=== PATIENT | male | born 1960 | race Caucasian/White ===

== ENCOUNTER → 2017-05-28 | Outpatient (CLI) | payer OTHER, MEDICAID ==
[2017-05-28 10:07] LABS: HEMATOCRIT 40.7 % (42.0-52.0); HEMOGLOBIN 13.6 g/dl (14.0-18.0); MEAN CELL VOLUME 109.7 fl (80.0-94.0); MEAN CORPUSCULAR HGB 36.7 pg (27.0-31.0); MEAN CORPUSCULAR HGB CONC 33.4 g/dl (33.0-37.0); MEAN PLATELET VOLUME 9.8 fl (9.6-12.3); PLATELET COUNT AUTOMATED 112 10*3/uL (130-400); RED BLOOD COUNT 3.71 10*6/uL (4.50-5.90)
[2017-05-28 10:23] LABS: ALBUMIN 3.4 gm/dl (3.1-4.5); CREATININE 4.23 mg/dL (0.70-1.30); MAGNESIUM 2.2 mg/dL (1.5-2.1); POTASSIUM 4.1 mmol/L (3.5-5.1)
[2017-05-28 10:24] LABS: PHOSPHOROUS 3.5 mg/dL (2.5-4.9); URIC ACID 3.2 mg/dL (3.5-7.2)
[2017-05-28 10:30] LABS: THYROID STIM HORMONE (HS) 0.681 uIU/ml (0.358-4.75); TOTAL PROTEIN 8.1 gm/dL (6.4-8.2)
[2017-05-28 10:43] LABS: ATYPICAL LYMPHS 4 % (0-0); BASOPHILS 1 % (0-1); TOTAL CELLS COUNTED 100 #CELLS
[2017-05-28 10:44] LABS: PLATELET SUFFICIENCY LOW (NORMAL)
[2017-05-28 10:47] LABS: SCHISTOCYTES FEW
== END | disposition home or self-care (01) ==
LOC: LAB 09:32
PROVIDERS: Family Medicine; Specialist
DX: Z12.5 Encounter for screening for malignant neoplasm of prostate (principal); E10.29 Type 1 diabetes mellitus with other diabetic kidney complication; D89.9 Disorder involving the immune mechanism, unspecified; T86.90 Unspecified complication of unspecified transplanted organ and tissue; E83.40 Disorders of magnesium metabolism, unspecified; I25.10 Atherosclerotic heart disease of native coronary artery without angina pectoris; N18.6 End stage renal disease; I77.9 Disorder of arteries and arterioles, unspecified; Z79.899 Other long term (current) drug therapy; Z94.83 Pancreas transplant status; Z86.39 Personal history of other endocrine, nutritional and metabolic disease; Z95.5 Presence of coronary angioplasty implant and graft; Z72.0 Tobacco use

== ENCOUNTER → 2017-06-21 | Outpatient (CLI) | payer OTHER, MEDICAID | LOC: CARD 09:29 → US 10:30 | DX: I65.23 Occlusion and stenosis of bilateral carotid arteries (principal); I10 Essential (primary) hypertension; I25.10 Atherosclerotic heart disease of native coronary artery without angina pectoris; I77.9 Disorder of arteries and arterioles, unspecified; Z95.5 Presence of coronary angioplasty implant and graft; Z79.899 Other long term (current) drug therapy ==

== ENCOUNTER → 2017-07-02 | Outpatient (CLI) | payer OTHER, MEDICAID ==
[2017-07-02 10:19] LABS: BILIRUBIN 1+ (NEGATIVE); BLOOD NEGATIVE (NEGATIVE); CLARITY SL CLOUDY (CLEAR); COLOR YELLOW (YELLOW); GLUCOSE NEGATIVE (NEGATIVE); KETONE TRACE (NEGATIVE); LEUKO ESTERASE 1+ (NEGATIVE); NITRITE NEGATIVE (NEGATIVE); UROBILINOGEN 0.2 E.U./dl (0.2-1.0)
[2017-07-02 11:01] LABS: BACTERIA 2+; WBC 16-20 wbc/hpf (0-5)
== END | disposition home or self-care (01) ==
LOC: LAB 09:18
PROVIDERS: Internal Medicine Nephrology
DX: R30.0 Dysuria (principal)

== ENCOUNTER → 2017-09-08 | Outpatient (CLI) | payer OTHER, MEDICAID ==
[2017-09-08 09:48] LABS: HEMATOCRIT 33.8 % (42.0-52.0); HEMOGLOBIN 11.3 g/dl (14.0-18.0); MEAN CELL VOLUME 111.6 fl (80.0-94.0); MEAN CORPUSCULAR HGB 37.3 pg (27.0-31.0); MEAN CORPUSCULAR HGB CONC 33.4 g/dl (33.0-37.0); MEAN PLATELET VOLUME 9.5 fl (9.6-12.3); PLATELET COUNT AUTOMATED 190 10*3/uL (130-400); RED BLOOD COUNT 3.03 10*6/uL (4.50-5.90); RED CELL DISTRI WIDTH 14.3 % (0-14.5); WHITE BLOOD COUNT 5.9 10*3/uL (4.8-10.8)
[2017-09-08 10:08] LABS: BASOPHILS 1 % (0-1); TOTAL CELLS COUNTED 100 #CELLS
[2017-09-08 10:09] LABS: PLATELET SUFFICIENCY NORMAL (NORMAL)
[2017-09-08 10:13] LABS: ALBUMIN 3.5 gm/dl (3.1-4.5); CREATININE 4.14 mg/dL (0.70-1.30); POTASSIUM 3.7 mmol/L (3.5-5.1); TOTAL PROTEIN 7.6 gm/dL (6.4-8.2); URIC ACID 3.7 mg/dL (3.5-7.2)
[2017-09-09 06:10] LABS: HIV 1+2 AB + HIV1 P24 AG Non Reactive (Non Reactive)
[2017-09-10 07:06] LABS: HEPATITIS B SURFACE AG Positive (Negative); HEPATITIS Be ANTIGEN 006619 Positive (Negative)
[2017-09-10 14:07] LABS: HBV LOG10 7.947 (.); HBV QUANT 88600000 IU/mL (.); HEPATITIS B QNT See Final Results IU/mL (.)
== END | disposition home or self-care (01) ==
LOC: LAB 08:50
PROVIDERS: Internal Medicine Infectious Disease
DX: Z11.4 Encounter for screening for human immunodeficiency virus [HIV] (principal); B18.1 Chronic viral hepatitis B without delta-agent; D89.9 Disorder involving the immune mechanism, unspecified; Z94.0 Kidney transplant status

== ENCOUNTER → 2017-09-22 | Outpatient (CLI) | payer OTHER, MEDICAID ==
[2017-09-22 11:06] LABS: LIPASE 434 U/L (73-393)
== END | disposition home or self-care (01) ==
LOC: LAB 10:05
PROVIDERS: Specialist
DX: D89.9 Disorder involving the immune mechanism, unspecified (principal); Z94.83 Pancreas transplant status; Z79.899 Other long term (current) drug therapy

== ENCOUNTER → 2017-11-24 | Outpatient (CLI) | payer OTHER, MEDICAID ==
[2017-11-24 10:44] LABS: HEMATOCRIT 33.3 % (42.0-52.0); HEMOGLOBIN 10.9 g/dl (14.0-18.0); MEAN CELL VOLUME 110.3 fl (80.0-94.0); MEAN CORPUSCULAR HGB 36.1 pg (27.0-31.0); MEAN CORPUSCULAR HGB CONC 32.7 g/dl (33.0-37.0); MEAN PLATELET VOLUME 9.7 fl (9.6-12.3); PLATELET COUNT AUTOMATED 198 10*3/uL (130-400); RED BLOOD COUNT 3.02 10*6/uL (4.50-5.90); WHITE BLOOD COUNT 5.5 10*3/uL (4.8-10.8)
[2017-11-24 10:49] LABS: CREATININE 4.58 mg/dL (0.70-1.30); POTASSIUM 4.2 mmol/L (3.5-5.1); URIC ACID 3.2 mg/dL (3.5-7.2)
[2017-11-24 11:06] LABS: BASOPHILS 2 % (0-1); PLATELET SUFFICIENCY NORMAL (NORMAL); POLYCHROMASIA SLIGHT; TOTAL CELLS COUNTED 100 #CELLS
== END | disposition home or self-care (01) ==
LOC: LAB 10:03
PROVIDERS: Specialist
DX: D89.9 Disorder involving the immune mechanism, unspecified (principal); Z94.83 Pancreas transplant status; T86.90 Unspecified complication of unspecified transplanted organ and tissue; E83.40 Disorders of magnesium metabolism, unspecified; Z79.899 Other long term (current) drug therapy

== ENCOUNTER → 2017-12-14 | Outpatient (CLI) | payer OTHER, MEDICAID ==
[2017-12-14 09:11] LABS: HEMATOCRIT 34.5 % (42.0-52.0); HEMOGLOBIN 11.6 g/dl (14.0-18.0); MEAN CELL VOLUME 109.2 fl (80.0-94.0); MEAN CORPUSCULAR HGB 36.7 pg (27.0-31.0); MEAN CORPUSCULAR HGB CONC 33.6 g/dl (33.0-37.0); MEAN PLATELET VOLUME 9.3 fl (9.6-12.3); PLATELET COUNT AUTOMATED 186 10*3/uL (130-400); RED BLOOD COUNT 3.16 10*6/uL (4.50-5.90); RED CELL DISTRI WIDTH 14.9 % (0-14.5); WHITE BLOOD COUNT 6.4 10*3/uL (4.8-10.8)
[2017-12-14 09:43] LABS: CREATININE 5.81 mg/dL (0.70-1.30); PHOSPHOROUS 5.5 mg/dL (2.5-4.9); POTASSIUM 3.7 mmol/L (3.5-5.1); URIC ACID 5.4 mg/dL (3.5-7.2)
[2017-12-14 09:58] LABS: PLATELET SUFFICIENCY NORMAL (NORMAL); TOTAL CELLS COUNTED 100 #CELLS
== END | disposition home or self-care (01) ==
LOC: LAB 08:40
PROVIDERS: Specialist
DX: E83.40 Disorders of magnesium metabolism, unspecified (principal); D89.9 Disorder involving the immune mechanism, unspecified; T86.90 Unspecified complication of unspecified transplanted organ and tissue; Z79.899 Other long term (current) drug therapy; Z94.83 Pancreas transplant status

== ENCOUNTER → 2018-01-11 | Outpatient (CLI) | payer OTHER, MEDICAID ==
[2018-01-11 10:38] LABS: HEMATOCRIT 34.4 % (42.0-52.0); HEMOGLOBIN 11.4 g/dl (14.0-18.0); MEAN CELL VOLUME 111.3 fl (80.0-94.0); MEAN CORPUSCULAR HGB 36.9 pg (27.0-31.0); MEAN CORPUSCULAR HGB CONC 33.1 g/dl (33.0-37.0); MEAN PLATELET VOLUME 10.2 fl (9.6-12.3); PLATELET COUNT AUTOMATED 145 10*3/uL (130-400); RED BLOOD COUNT 3.09 10*6/uL (4.50-5.90); RED CELL DISTRI WIDTH 14.6 % (0-14.5); WHITE BLOOD COUNT 5.4 10*3/uL (4.8-10.8)
[2018-01-11 11:00] LABS: CREATININE 5.8 mg/dL (0.70-1.30); PHOSPHOROUS 4.4 mg/dL (2.5-4.9); POTASSIUM 3.7 mmol/L (3.5-5.1); URIC ACID 6.7 mg/dL (3.5-7.2)
[2018-01-11 11:14] LABS: BASOPHILS 3 % (0-1); PLATELET SUFFICIENCY NORMAL (NORMAL); TOTAL CELLS COUNTED 100 #CELLS
== END | disposition home or self-care (01) ==
LOC: LAB 08:57
PROVIDERS: Specialist
DX: D89.9 Disorder involving the immune mechanism, unspecified (principal); E83.40 Disorders of magnesium metabolism, unspecified; T86.90 Unspecified complication of unspecified transplanted organ and tissue; Z94.83 Pancreas transplant status; Z79.899 Other long term (current) drug therapy

== ENCOUNTER 2018-02-04 10:51 | Inpatient (IN) | payer OTHER, MEDICAID ==
[~2018-02-04] VITALS: Ht 168 cm; Wt 66.7 kg
[2018-02-04 10:52] VITALS: BP 120/60
[2018-02-04 11:05] LABS: HEMATOCRIT 35.8 % (42.0-52.0); HEMOGLOBIN 12.1 g/dl (14.0-18.0); MEAN CELL VOLUME 110.8 fl (80.0-94.0); MEAN CORPUSCULAR HGB 37.5 pg (27.0-31.0); MEAN CORPUSCULAR HGB CONC 33.8 g/dl (33.0-37.0); MEAN PLATELET VOLUME 9.7 fl (9.6-12.3); PLATELET COUNT AUTOMATED 182 10*3/uL (130-400); RED BLOOD COUNT 3.23 10*6/uL (4.50-5.90); RED CELL DISTRI WIDTH 14.1 % (0-14.5); WHITE BLOOD COUNT 6.6 10*3/uL (4.8-10.8)
[2018-02-04 11:13] LABS: ACT PARTIAL THROMBO TIME 25.5 SECONDS (20.8-31.5)
[2018-02-04 11:20] LABS: ALBUMIN 3.4 gm/dl (3.1-4.5); ALKALINE PHOSPHATASE 62 U/L (45-117); BUN 19 mg/dl (7-24); CHLORIDE 98 mmol/L (98-107); CREATININE 4.76 mg/dL (0.70-1.30); POTASSIUM 3.5 mmol/L (3.5-5.1); SGOT/AST 20 IU/L (3-35); SGPT/ALT 23 U/L (12-78); SODIUM 137 mmol/L (136-145); TOTAL PROTEIN 7.4 gm/dL (6.4-8.2)
[2018-02-04 11:22] LABS: PLATELET SUFFICIENCY NORMAL (NORMAL); TOTAL CELLS COUNTED 100 #CELLS; TROPONIN I < 0.015 ng/ml (<0.045)
[2018-02-04 11:24] VITALS: BP 131/59
[2018-02-04 11:46] VITALS: BP 118/60
[2018-02-04 12:00] VITALS: BP 145/55
[2018-02-04] MEDS ORDERED: AZASAN50 MG PO (13:28)
[2018-02-04] MEDS ORDERED: BUMETANIDE2 MG PO (13:29)
[2018-02-04] MEDS ORDERED: CLOPIDOGREL75 MG PO (13:29)
[2018-02-04] MEDS ORDERED: BARACLUDE0.5 MG PO (13:29)
[2018-02-04] MEDS ORDERED: METOPROLOL SUC100 M1 PO (13:31)
[2018-02-04] MEDS ORDERED: COZAAR100 MG PO (13:31)
[2018-02-04] MEDS ORDERED: MILLIPRED5 MG PO (13:32)
[2018-02-04] MEDS ORDERED: NEPHRO-VITE TA0.8 MG PO (13:32)
[2018-02-04] MEDS ORDERED: SERTRALINE HYD100 MG PO (13:32)
[2018-02-04] MEDS ORDERED: FLOMAX0.4 MG PO (13:33)
== END 2018-02-04 15:34 | disposition home or self-care (01) | DRG 149 ==
LOC: ED 10:51 → EDHOLD 11:35 → 4E 12:04
PROVIDERS: Nurse Practitioner Family
DX: R42 Dizziness and giddiness (principal); E11.22 Type 2 diabetes mellitus with diabetic chronic kidney disease; Z94.83 Pancreas transplant status; Z94.0 Kidney transplant status; F17.200 Nicotine dependence, unspecified, uncomplicated; N18.9 Chronic kidney disease, unspecified; D53.9 Nutritional anemia, unspecified; I12.9 Hypertensive chronic kidney disease with stage 1 through stage 4 chronic kidney disease, or unspecified chronic kidney disease; I25.10 Atherosclerotic heart disease of native coronary artery without angina pectoris; Z98.61 Coronary angioplasty status; Z71.6 Tobacco abuse counseling; Z88.9 Allergy status to unspecified drugs, medicaments and biological substances; Z90.49 Acquired absence of other specified parts of digestive tract

== ENCOUNTER → 2018-07-28 | Outpatient (CLI) | payer OTHER, MEDICAID ==
[~2018-07-28] MED LIST: AZASAN50 MG PO; BARACLUDE0.5 MG PO; BUMETANIDE2 MG PO; CLOPIDOGREL75 MG PO; COZAAR100 MG PO; FLOMAX0.4 MG PO; METOPROLOL SUC100 M1 PO; MILLIPRED5 MG PO; NEPHRO-VITE TA0.8 MG PO; SERTRALINE HYD100 MG PO
[2018-07-28 09:34] LABS: HEMATOCRIT 35.1 % (42.0-52.0); HEMOGLOBIN 12.1 g/dl (14.0-18.0); MEAN CELL VOLUME 108.3 fl (80.0-94.0); MEAN CORPUSCULAR HGB 37.3 pg (27.0-31.0); MEAN CORPUSCULAR HGB CONC 34.5 g/dl (33.0-37.0); MEAN PLATELET VOLUME 9.3 fl (9.6-12.3); PLATELET COUNT AUTOMATED 180 10*3/uL (130-400); RED BLOOD COUNT 3.24 10*6/uL (4.50-5.90); WHITE BLOOD COUNT 5.8 10*3/uL (4.8-10.8)
[2018-07-28 10:00] LABS: ALBUMIN 3.7 gm/dl (3.1-4.5); CREATININE 5.61 mg/dL (0.70-1.30); PHOSPHOROUS 4.5 mg/dL (2.5-4.9)
[2018-07-28 10:09] LABS: ATYPICAL LYMPHS 6 % (0-0); TOTAL CELLS COUNTED 100 #CELLS
[2018-07-28 10:10] LABS: FREE T4 0.77 ng/dl (0.76-1.46); THYROID STIM HORMONE (HS) 0.872 uIU/ml (0.358-4.75); TOTAL PROTEIN 7.6 gm/dL (6.4-8.2)
[2018-07-28 10:10] LABS: PLATELET SUFFICIENCY NORMAL (NORMAL)
[2018-07-29 05:09] LABS: FREE T3 010389 2.5 pg/mL (2.0-4.4)
[2018-07-29 09:08] LABS: HEPATITIS Be ANTIGEN 006619 Positive (Negative)
[2018-07-30 00:04] LABS: TESTOSTERONE FREE, (DIRECT) 8.5 pg/mL (7.2-24.0)
[2018-07-30 21:08] LABS: METHYLMALONIC ACID 1099 nmol/L (0-378)
[2018-08-01 09:12] LABS: HEPATITIS B SURFACE AG Positive (Negative)
== END | disposition home or self-care (01) ==
LOC: LAB 08:59
PROVIDERS: Internal Medicine Infectious Disease
DX: N18.6 End stage renal disease (principal); B18.1 Chronic viral hepatitis B without delta-agent; B19.10 Unspecified viral hepatitis B without hepatic coma; R53.83 Other fatigue

== ENCOUNTER → 2018-10-06 | Outpatient (CLI) | payer OTHER, MEDICAID ==
[2018-10-06 09:58] LABS: BASO % 0.7 % (0.0-1.0); EOS # 0.2 10*3/uL (0.0-0.4); EOS % 4.4 % (1.0-4.0); HEMATOCRIT 31.9 % (42.0-52.0); HEMOGLOBIN 11.1 g/dl (14.0-18.0); LYMPH # 1.9 10*3/uL (1.3-4.4); MEAN CORPUSCULAR HGB 37.2 pg (27.0-31.0); MEAN CORPUSCULAR HGB CONC 34.8 g/dl (33.0-37.0); MEAN PLATELET VOLUME 10.2 fl (9.6-12.3); MONO # 0.6 10*3/uL (0.1-1.0); MONO % 11.4 % (3.0-9.0); NEUT # 2.7 10*3/uL (2.3-7.9); NEUT % 48.1 % (47.0-73.0); PLATELET COUNT AUTOMATED 167 10*3/uL (130-400); RED BLOOD COUNT 2.98 10*6/uL (4.50-5.90); RED CELL DISTRI WIDTH 14.1 % (0-14.5); WHITE BLOOD COUNT 5.5 10*3/uL (4.8-10.8)
[2018-10-06 10:30] LABS: CREATININE 6.06 mg/dL (0.70-1.30); PHOSPHOROUS 4.3 mg/dL (2.5-4.9); POTASSIUM 3.5 mmol/L (3.5-5.1); URIC ACID 5.3 mg/dL (3.5-7.2)
== END | disposition home or self-care (01) ==
LOC: LAB 09:06
PROVIDERS: Specialist
DX: E83.40 Disorders of magnesium metabolism, unspecified (principal); D89.9 Disorder involving the immune mechanism, unspecified; T86.90 Unspecified complication of unspecified transplanted organ and tissue; Z79.899 Other long term (current) drug therapy; Z94.0 Kidney transplant status; Z94.83 Pancreas transplant status

== ENCOUNTER → 2019-02-21 | Outpatient (CLI) | payer OTHER ==
[~2019-02-21] MED LIST changes: +ASPIRIN ADULT L81 M1 PO; +DOXYCYCLINE100 M3 PO; +MUCINEX1200 M1 PO; +PREDNISONE10 MG PO; +TACROLIMUS1 M1 PO
[2019-02-21 09:32] LABS: HEMATOCRIT 32.3 % (42.0-52.0); HEMOGLOBIN 10.9 g/dl (14.0-18.0); MEAN CELL VOLUME 109.9 fl (80.0-94.0); MEAN CORPUSCULAR HGB 37.1 pg (27.0-31.0); MEAN CORPUSCULAR HGB CONC 33.7 g/dl (33.0-37.0); MEAN PLATELET VOLUME 9.8 fl (9.6-12.3); PLATELET COUNT AUTOMATED 203 10*3/uL (130-400); RED BLOOD COUNT 2.94 10*6/uL (4.50-5.90); RED CELL DISTRI WIDTH 15.2 % (0-14.5); WHITE BLOOD COUNT 4.4 10*3/uL (4.8-10.8)
[2019-02-21 10:02] LABS: CREATININE 4.98 mg/dL (0.70-1.30); PHOSPHOROUS 2.9 mg/dL (2.5-4.9)
[2019-02-21 10:05] LABS: BASOPHILS 1 % (0-1); PLATELET SUFFICIENCY NORMAL (NORMAL); TOTAL CELLS COUNTED 100 #CELLS
[2019-02-22 08:07] LABS: HEPATITIS B SURFACE AG Positive (Negative); HEPATITIS Be ANTIGEN 006619 Positive (Negative)
== END | disposition home or self-care (01) ==
LOC: LAB 08:57
PROVIDERS: Internal Medicine Infectious Disease; Specialist
DX: D89.9 Disorder involving the immune mechanism, unspecified (principal); E83.40 Disorders of magnesium metabolism, unspecified; B18.1 Chronic viral hepatitis B without delta-agent; T86.90 Unspecified complication of unspecified transplanted organ and tissue; Z79.899 Other long term (current) drug therapy

== ENCOUNTER → 2019-03-14 | Outpatient (CLI) | payer OTHER ==
[2019-03-14 09:49] LABS: HEMATOCRIT 33.1 % (42.0-52.0); HEMOGLOBIN 11.1 g/dl (14.0-18.0); MEAN CELL VOLUME 108.5 fl (80.0-94.0); MEAN CORPUSCULAR HGB 36.4 pg (27.0-31.0); MEAN CORPUSCULAR HGB CONC 33.5 g/dl (33.0-37.0); MEAN PLATELET VOLUME 10.3 fl (9.6-12.3); PLATELET COUNT AUTOMATED 166 10*3/uL (130-400); RED BLOOD COUNT 3.05 10*6/uL (4.50-5.90); RED CELL DISTRI WIDTH 15.1 % (0-14.5); WHITE BLOOD COUNT 6.2 10*3/uL (4.8-10.8)
[2019-03-14 10:09] LABS: CREATININE 5.46 mg/dL (0.70-1.30); PHOSPHOROUS 4.4 mg/dL (2.5-4.9); POTASSIUM 3.3 mmol/L (3.5-5.1); URIC ACID 5.5 mg/dL (3.5-7.2)
[2019-03-14 10:32] LABS: BASOPHILS 2 % (0-1); PLATELET SUFFICIENCY NORMAL (NORMAL); SCHISTOCYTES FEW; TOTAL CELLS COUNTED 100 #CELLS
== END | disposition home or self-care (01) ==
LOC: LAB 08:59
PROVIDERS: Specialist
DX: T86.90 Unspecified complication of unspecified transplanted organ and tissue (principal); D89.9 Disorder involving the immune mechanism, unspecified; E83.40 Disorders of magnesium metabolism, unspecified; Z79.899 Other long term (current) drug therapy; Z94.83 Pancreas transplant status; Z94.0 Kidney transplant status

== ENCOUNTER → 2019-04-20 | Outpatient (CLI) | payer OTHER, MEDICAID ==
[2019-04-20 09:26] LABS: BASO # 0.1 10*3/uL (0.0-0.1); EOS # 0.2 10*3/uL (0.0-0.4); EOS % 4.7 % (1.0-4.0); HEMATOCRIT 34.1 % (42.0-52.0); HEMOGLOBIN 11.7 g/dl (14.0-18.0); LYMPH # 1.4 10*3/uL (1.3-4.4); MEAN CELL VOLUME 105.2 fl (80.0-94.0); MEAN CORPUSCULAR HGB 36.1 pg (27.0-31.0); MEAN CORPUSCULAR HGB CONC 34.3 g/dl (33.0-37.0); MEAN PLATELET VOLUME 9.8 fl (9.6-12.3); MONO # 0.5 10*3/uL (0.1-1.0); MONO % 9.4 % (3.0-9.0); NEUT % 57.5 % (47.0-73.0); PLATELET COUNT AUTOMATED 146 10*3/uL (130-400); RED BLOOD COUNT 3.24 10*6/uL (4.50-5.90); RED CELL DISTRI WIDTH 14.3 % (0-14.5); WHITE BLOOD COUNT 5.1 10*3/uL (4.8-10.8)
[2019-04-20 09:55] LABS: POTASSIUM 3.2 mmol/L (3.5-5.1)
[2019-04-20 09:56] LABS: CREATININE 6.07 mg/dL (0.70-1.30); PHOSPHOROUS 4.5 mg/dL (2.5-4.9); URIC ACID 6.2 mg/dL (3.5-7.2)
== END | disposition home or self-care (01) ==
LOC: LAB 08:51
PROVIDERS: Specialist
DX: E83.40 Disorders of magnesium metabolism, unspecified (principal); D89.9 Disorder involving the immune mechanism, unspecified; Z94.83 Pancreas transplant status; Z94.0 Kidney transplant status; Z79.899 Other long term (current) drug therapy; T86.90 Unspecified complication of unspecified transplanted organ and tissue

== ENCOUNTER → 2019-06-13 | Outpatient (CLI) | payer OTHER, MEDICAID ==
[2019-06-13 09:18] LABS: BASO % 0.6 % (0.0-1.0); EOS # 0.2 10*3/uL (0.0-0.4); EOS % 4.3 % (1.0-4.0); HEMATOCRIT 34.8 % (42.0-52.0); HEMOGLOBIN 11.8 g/dl (14.0-18.0); LYMPH # 1.6 10*3/uL (1.3-4.4); LYMPH % 30.4 % (27.0-41.0); MEAN CELL VOLUME 106.7 fl (80.0-94.0); MEAN CORPUSCULAR HGB 36.2 pg (27.0-31.0); MEAN CORPUSCULAR HGB CONC 33.9 g/dl (33.0-37.0); MEAN PLATELET VOLUME 10.2 fl (9.6-12.3); MONO # 0.5 10*3/uL (0.1-1.0); MONO % 9.2 % (3.0-9.0); NEUT # 2.8 10*3/uL (2.3-7.9); NEUT % 55.3 % (47.0-73.0); PLATELET COUNT AUTOMATED 166 10*3/uL (130-400); RED BLOOD COUNT 3.26 10*6/uL (4.50-5.90); RED CELL DISTRI WIDTH 14.8 % (0-14.5); WHITE BLOOD COUNT 5.1 10*3/uL (4.8-10.8)
[2019-06-13 09:43] LABS: CREATININE 8.17 mg/dL (0.70-1.30); PHOSPHOROUS 4.5 mg/dL (2.5-4.9); POTASSIUM 3.3 mmol/L (3.5-5.1); URIC ACID 5.6 mg/dL (3.5-7.2)
== END | disposition home or self-care (01) ==
LOC: LAB 08:43
PROVIDERS: Specialist
DX: E83.40 Disorders of magnesium metabolism, unspecified (principal); T86.90 Unspecified complication of unspecified transplanted organ and tissue; D89.9 Disorder involving the immune mechanism, unspecified; Z94.0 Kidney transplant status; Z94.83 Pancreas transplant status; Z79.899 Other long term (current) drug therapy

== ENCOUNTER → 2019-08-04 | Outpatient (CLI) | payer OTHER, MEDICAID | END | disposition home or self-care (01) | LOC: RAD 09:47 | DX: R50.9 Fever, unspecified (principal); R05 Cough; R06.02 Shortness of breath; F17.200 Nicotine dependence, unspecified, uncomplicated ==